=== PATIENT | male | born 1960 | race Caucasian/White ===

== ENCOUNTER 2022-07-15 10:19 | Emergency (ER) | payer MEDICARE, OTHER, SELFPAY ==
[2022-07-15 11:36] VITALS: BP 158/72; PULSE 72; RESP 12; TEMP 36.7; O2SAT 98; BMI 29.5
[2022-07-15 11:48] LABS: Appearance Urine Clear; Color Urine Yellow; Glucose Urine UA >=1000 mg/dL (Negative); Leukocyte Esterase Urine Small (1+) (Negative); Nitrite Urine Negative (Negative); UMIC TRIGGER UACC YES; Urine Blood Negative (Negative); Urine Ketones Negative (Negative); Urine Protein Negative (Neg-Trace)
[2022-07-15 12:00] LABS: Bacteria Urine None Seen (None Seen); Hyaline Casts Urine 0-2 /LPF (0-2); RBC Urine 0-2 /HPF (0-2); Squamous Epithelial Cell Urine 0-2 /HPF (0-2); UACC Culture Trigger YES; WBC Urine 0-5 /HPF (0-5)
== END 2022-07-15 16:00 | disposition left against medical advice (07) ==
PROVIDERS: Emergency Provider Emergency Medicine; PCP Internal Medicine
DX: R30.0 Dysuria (principal); E11.9 Type 2 diabetes mellitus without complications
CPT/HCPCS: 81001; 87086; 99282

== ENCOUNTER 2022-11-19 10:50 | Emergency (ER) | payer MEDICARE, MEDICAID, OTHER, SELFPAY ==
--- NOTE | 2022-11-19 11:00 | ED.EYEPROB ---
HPI - Eye Problem General Chief complaint: Eye Problems Stated complaint: eye issue Related Data Home Medications Medication Instructions Recorded Confirmed amlodipine 5 mg tablet 5 mg PO DAILY 11/12/20 blood sugar diagnostic #10 ea 11/12/20 lancets 28 gauge #100 ea 11/12/20 lisinopril 20 mg tablet 20 mg PO DAILY 11/12/20 metformin 1,000 mg tablet 1,000 mg PO 11/12/20 morphine 15 mg tablet,extended mg PO 11/12/20 release Previous Rx's Medication Instructions Recorded pentoxifylline 400 mg 400 mg PO BID 90 days #180 tabs 11/12/20 tablet,extended release vitamin E (dl, acetate) 450 mg 450 mg PO DAILY #90 caps 11/12/20 (1,000 unit) capsule Allergies Allergy/AdvReac Type Severity Reaction Status Date / Time No Known Allergies Allergy Unverified 07/11/20 16:22 [No Known Allergies*] [facility] Past Medical History Medical History (Updated 11/21/22 @ 08:06 by Liat Duke NP) Diabetes Social History Social History Advance Directives: No Advance Directives Information Provided: No Physical Exam Vital Signs: Vital Signs: Last Vital Signs Temp 98.4 F 11/19/22 11:01 Pulse 76 11/19/22 11:01 Resp 18 11/19/22 11:01 BP 147/90 H 11/19/22 11:01 Pulse Ox 97 11/19/22 11:01 O2 Del Method 11/19/22 11:01 BMI result Body Mass Index 30.4 Course Course Course Narrative: This is a rapid medical exam. Deferred additional HPI, ROS, PE to primary provider. 62 yo male with history of DM, HTN here with bilateral eye pain, itching, watering x 4 days. No visual complaints. Has not called eye doctor (sees Giovanni in [place]-had cataracts a few months ago). VSS Discharge Plan Discharge Clinical Impression: Acute eye pain Patient Disposition: Elopement Prescriptions: No Action morphine 15 mg tablet extended release PO amlodipine 5 mg tablet 5 mg PO DAILY (DME) FreeStyle Lite Strips Strip See Rx Instructions Not Applicable DAILY Qty: 10 Rx Instructions: As directed (DME) lancets 28 gauge misc See Rx Instructions topical DAILY Qty: 100 Rx Instructions: As directed lisinopril 20 mg tablet 20 mg PO DAILY metformin 1,000 mg tablet 1,000 mg PO pentoxifylline 400 mg tablet extended release 400 mg PO BID 90 Days Qty: 180 1RF Rx Instructions: administer with meals vitamin E (dl, acetate) 450 mg (1,000 unit) capsule 450 mg PO DAILY Qty: 90 1RF Interventions: ED Discharge Assessment Last Done: 11/19/22 12:39 Discharge Date/Time: 11/19/22 12:41
[2022-11-19 11:01] VITALS: BP 147/90; PULSE 76; RESP 18; TEMP 36.9; O2SAT 97; BMI 30.4
== END 2022-11-19 12:41 | disposition left against medical advice (07) ==
PROVIDERS: Emergency Provider Emergency Medicine; PCP Internal Medicine
DX: H57.13 Ocular pain, bilateral (principal)
CPT/HCPCS: 99282

== ENCOUNTER 2022-11-25 14:37 | Emergency (ER) | payer MEDICARE, MEDICAID, SELFPAY ==
--- NOTE | 2022-11-25 14:44 | ED.BACK ---
HPI - Back Pain/Injury General Chief Complaint: Back Pain/Injury <Liat Duke NP - Last Filed: 11/25/22 14:47> Stated Complaint: Lower back pain <Liat Duke NP - Last Filed: 11/25/22 14:47> Time Seen by Provider: 11/25/22 16:21 <Liat Duke NP - Last Filed: 11/25/22 14:47> Source: patient <ELSY Austin - Last Filed: 11/25/22 17:28> Mode of arrival: ambulatory <ELSY Austin Last Filed: 11/25/22 17:28> Limitations: language barrier (French-speaking) <ELSY Austin Last Filed: 11/25/22 17:28> History of Present Illness HPI Narrative: 62-year-old male with a past medical history of chronic back pain and BPH with urinary obstruction who is currently on morphine pain management due to his chronic back pain presenting to the ER with complaints of acute on chronic lower back pain since Wednesday after he was heavy lifting/moving things around. He reports he has been taking his prescribed morphine and no symptomatic relief. He reports he has came to emergency department in the past he believes [facility] and they gave him an injection which provided moderate symptomatic relief therefore he is requesting this injection. He reports this feels like his normal back pain. He denies any fevers, chest pain or shortness of breath, rashes, recent falls or trauma, abdominal pain, flank pain, dysuria, hematuria, abnormal penile discharge, black or bloody stools, diarrhea constipation, urinary bowel incontinence or retention, history of IV drug use, saddle anesthesias, lower extremity more calf tenderness or any other symptoms complaints or concerns at this time. <ELSY Austin - Last Filed: 11/25/22 17:28> MD elicited complaint: back pain <ELSY Austin - Last Filed: 11/25/22 17:28> Pertinent past history: prior back pain <ELSY Austin - Last Filed: 11/25/22 17:28> Onset (ago): day(s) (5) <ELSY Austin Last Filed: 11/25/22 17:28> Timing: constant and progressively worsening <ELSY Austin - Last Filed: 11/25/22 17:28> Severity: moderate <ELSY Austin - Last Filed: 11/25/22 17:28> Similar Symptoms Previously: Yes <ELSY Austin - Last Filed: 11/25/22 17:28> Quality: aching <ELSY Austin - Last Filed: 11/25/22 17:28> Location: lumbar spine and right lower back <ELSY Austin - Last Filed: 11/25/22 17:28> Radiation: none <ELSY Austin - Last Filed: 11/25/22 17:28> Exacerbating factors: movement, sitting upright, walking and lifting <ELSY Austin - Last Filed: 11/25/22 17:28> Relieving factors: none <ELSY Austin - Last Filed: 11/25/22 17:28> Context: while lifting, turning/twisting and bending <ELSY Austin - Last Filed: 11/25/22 17:28> Associated symptoms: denies other symptoms <ELSY Austin - Last Filed: 11/25/22 17:28> Treatments prior to arrival: other (See above) <ELSY Austin - Last Filed: 11/25/22 17:28> Work related injury: No <ELSY Austin - Last Filed: 11/25/22 17:28> Related Data Home Medications: Home Medications Medication Instructions Recorded Confirmed amlodipine 5 mg tablet 5 mg PO DAILY 11/12/20 blood sugar diagnostic #10 ea 11/12/20 lancets 28 gauge #100 ea 11/12/20 lisinopril 20 mg tablet 20 mg PO DAILY 11/12/20 metformin 1,000 mg tablet 1,000 mg PO 11/12/20 morphine 15 mg tablet,extended mg PO 11/12/20 release Previous Rx's Medication Instructions Recorded pentoxifylline 400 mg 400 mg PO BID 90 days #180 tabs 11/12/20 tablet,extended release vitamin E (dl, acetate) 450 mg 450 mg PO DAILY #90 caps 11/12/20 (1,000 unit) capsule cyclobenzaprine 10 mg tablet 10 mg PO Q8H #14 tabs 11/25/22 ketorolac 10 mg tablet 10 mg PO Q8H #14 tabs 11/25/22 <Liat Duke NP - Last Filed: 11/25/22 14:47> Allergies/Adverse Reactions: Allergies Allergy/AdvReac Type Severity Reaction Status Date / Time No Known Allergies Allergy Verified 11/25/22 16:48 [No Known Allergies*] <Liat Duke NP - Last Filed: 11/25/22 14:47> Review of Systems Review of Systems: Constitutional : No trauma, No Weight loss, No Fever, No Chills, ENT/Mouth : No Hearing loss, No Ear Pain, No Nasal Congestion, No Sinus Pain, No Hoarseness, No sore throat, No Rhinorrhea, No Swallowing Difficulty Cardiovascular : No Chest Pain, No SOB Respiratory : No Cough, No Dyspnea Gastrointestinal : No Nausea, No Vomiting, No Diarrhea, No abdominal Pain, No Hematochezia, No Melena Genitourinary : No Dysuria, No Urinary Frequency, No Hematuria, No Urinary or Bowel Incontinence/retention Musculoskeletal : + Back pain, No neck pain, No joint stiffness, No joint swelling Skin : No Skin Lesions, No rash or signs of infection Neuro : No Weakness, No radiation, No Numbness, No Paresthesias, No headache, no loss of bowel or bladder incontinence, no saddle anesthesia, Focal weakness, No radiation Denies history of IV drug usage. <ELSY Austin - Last Filed: 11/25/22 17:28> Yes all other systems are reviewed and are negative <ELSY Austin - Last Filed: 11/25/22 17:28> [facility] Past Medical History Attestation statement: The following information was validated with the patient. <ELSY Austin - Last Filed: 11/25/22 17:28> Medical History: Medical History Diabetes <Liat Duke NP - Last Filed: 11/25/22 14:47> Social History Social History: Social History Alcohol intake: current Alcohol intake frequency: a few times a week Smoked in Last 30 Days: No Use of substances other than those prescribed or required for medical reasons: No Advance Directives: No Advance Directives Information Provided: Yes <Liat Duke NP - Last Filed: 11/25/22 14:47> Physical Exam Vital Signs: Vital Signs: Last Vital Signs Temp 98.2 F 11/25/22 14:45 Pulse 69 11/25/22 14:45 Resp 18 11/25/22 14:45 BP 148/64 H 11/25/22 14:45 Pulse Ox 98 11/25/22 14:45 O2 Del Method 11/25/22 14:45 BMI result Body Mass Index 29.5 <Liat Duke NP - Last Filed: 11/25/22 14:47> Vital Signs: Last Vital Signs Temp 98.2 F 11/25/22 14:45 Pulse 69 11/25/22 14:45 Resp 18 11/25/22 14:45 BP 148/64 H 11/25/22 14:45 Pulse Ox 98 11/25/22 14:45 O2 Del Method 11/25/22 14:45 BMI result Body Mass Index 29.5 vital signs have been reviewed as normal and appeared to be correct. Blood pressure normal. Heart rate normal. Respiration rate normal. Temperature normal. Oxygen saturation normal. <ELSY Austin - Last Filed: 11/25/22 17:28> Appearance: Alert. Oriented X3. No acute distress. Head: Normal external exam. Normocephalic. Atraumatic. No Rodarte signs noted. No raccoon eyes noted Eyes: PERRLA. EOMI. Conjunctiva and sclera normal. Eyelids normal. ENT: EAC normal. TM's Normal. Pharynx normal. Uvula midline. Moist mucous membranes. No trismus noted. No drooling noted. No muffled voice noted. Neck: Normal inspection. Neck supple. FROM. No adenopathy. Thyroid Normal. No meningeal signs. No neck mass noted. CVS: Normal heart rate and rhythm. Heart sound normal. No murmurs noted. Pulses normal throughout. Respiratory: No respiratory distress. Painless inspiration. Breath sounds normal. No wheezes/rales/rhonchi noted. Chest nontender. No accessory muscle usage noted or decreased air movement noted. Abdomen: Soft and nontender. Bowel sounds normal in all 4 quadrants. No distention noted. No organomegaly noted. No visible injury noted. Back: No CVA tenderness. Full range of motion noted. No obvious deformities, or edema. Mild para-spinal muscular tenderness from lumbar region to coccyx. Full ROM in back and lower extremities. 5/5 strength hip extension/flexion, abduction, adduction. Mild Lumbar pain with hip flexion against resistance. Straight leg raise test negative on right; Straight leg raise test negative on left; Reflexes normal ankle and knee bilaterally; EHL motor strength normal bilaterally. No rashes/lesion/induration/fluctuance or signs infection noted. Skin: Skin warm and dry. Normal skin color. Normal skin turgor. No rashes/lesions/lacerations noted. Extremities: No lower extremity edema. Extremities exhibit normal range of motion. Extremities nontender. Neuro: Oriented X 3. No motor deficit. No sensory deficit. Reflexes normal. Patient has a normal steady gait. <ELSY Austin - Last Filed: 11/25/22 17:28> Course Course Course Narrative: This is rapid medical exam. Deferred additional HPI, ROS, PE to primary provider. 62 yo male with history of DM, HTN, chronic back pain with right sided back pain since Wednesday. NO injury or trauma. Took morphine this morning and still has pain. VSS. Will obtain labs, UA <Liat Duke NP - Last Filed: 11/25/22 14:47> This is rapid medical exam. Deferred additional HPI, ROS, PE to primary provider. 62 yo male with history of DM, HTN, chronic back pain with right sided back pain since Wednesday. NO injury or trauma. Took morphine this morning and still has pain. VSS. Will obtain labs, UA <ELSY Austin - Last Filed: 11/25/22 17:28> Reevaluation(s) Reevaluation #1: Pt c likely muscular pain, but could be herniated disc. Neuro exam shows no deficits. Not c/w AAA/epidural abscess/dissection.No high risk Hx (Incont, fever, immunosupp, recent surgery/LP, coag, signif trauma, wt loss, puls mass, hx/o Ca, TB, or IVDU) to warrant MRI/CT today. Not c/w Pyelo/UTI/kidney stone/spinal fx. Not cauda equina syndrome. Imaging not currently indicated. He did have labs taken while she was in the waiting room patient mild anemia with an H&H of 12.8/38.6. Anion gap 11. BUN 19. Magnesium 1.5. Otherwise all other labs are within normal limits. UA revealed a 1000 glucose otherwise no evidence of UTI. therefore pt given PO Magnesium at this time. Therefore will DC home with symptomatic treatment instructions return if any new or worsening symptoms to follow up with primary care provider. Patient understands agrees with this plan. <ELSY Austin - Last Filed: 11/25/22 17:28> Time: 16:56 <ELSY Austin - Last Filed: 11/25/22 17:28> Medications Administered Discontinued Medications Generic Name Dose Route Start Last Admin Trade Name Freq PRN Reason Stop Dose Admin Ketorolac Tromethamine 60 mg 11/25/22 16:38 11/25/22 16:45 Ketorolac Tromethamine 60 Mg/2 Ml Vial IM 11/25/22 16:39 60 mg ONCE ONE Administration <Liat Duke NP - Last Filed: 11/25/22 14:47> Medications Administered Discontinued Medications Generic Name Dose Route Start Last Admin Trade Name Freq PRN Reason Stop Dose Admin Ketorolac Tromethamine 60 mg 11/25/22 16:38 11/25/22 16:45 Ketorolac Tromethamine 60 Mg/2 Ml Vial IM 11/25/22 16:39 60 mg ONCE ONE Administration <ELSY Austin - Last Filed: 11/25/22 17:28> Medical Decision Making Lab Data MDM Lab Attestation statement: I reviewed the patient's lab results. <ELSY Austin - Last Filed: 11/25/22 17:28> Result Diagrams: 11/25/22 14:58 11/25/22 14:58 <Liat Duke NP - Last Filed: 11/25/22 14:47> Labs: Lab Results 11/25/22 11/25/22 11/25/22 Range/Units 14:58 14:58 16:29 WBC 5.6 (4.8-10.8) X10*3/uL RBC 4.75 (4.60-5.80) X10*6/uL Hgb 12.8 L (14.0-18.0) g/dl Hct 38.6 L (42.0-52.0) % MCV 81.3 (80.0-98.0) fL MCH 26.9 L (27.0-33.0) pg MCHC 33.2 (31.0-36.0) g/dl RDW 13.9 (11.0-16.0) % Plt Count 338 (160-400) X10*3/uL MPV 9.8 (9.4-12.4) fL Immature Gran % (Auto) 0.4 (0.0-0.4) % Neut % (Auto) 41.4 L (45-73) % Lymph % (Auto) 45.4 H (20-40) % Mcpherson % (Auto) 9.2 (2-11) % Eos % (Auto) 2.7 (0-4) % Baso % (Auto) 0.9 (0-2) % Lymph # (Auto) 2.5 (1.2-4.9) X10*3/uL Mcpherson # (Auto) 0.5 (0.1-1.2) X10*3/uL Eos # (Auto) 0.2 (0.0-0.4) X10*3/uL Baso # (Auto) 0.1 (0.0-0.2) X10*3/uL Abs Immat Gran (auto) 0.02 (0.00-0.03) X10*3/uL Absolute Neuts (auto) 2.3 (2.0-8.3) x10*3/uL Absolute Nucleated RBC 0.000 (0.0-0.012) X10*3/uL Nucleated RBC % (auto) 0.0 (0.0-0.2) /100WBC Sodium 136 (135-145) mmol/L Potassium 4.4 (3.3-5.1) mmol/L Chloride 101 (96-108) mmol/L Carbon Dioxide 28 (22-29) mmol/L Anion Gap 11 L (12-20) BUN 19 H (9-16) mg/dL Creatinine 1.19 (0.5-1.4) mg/dL Estim Creat Clear Calc 69.8 Estimated GFR > 60 Random Glucose 288 H (60-115) mg/dL Calcium 9.9 (8.4-10.2) mg/dL Magnesium 1.5 L (1.6-2.6) mg/dL Total Bilirubin 0.4 (0.0-1.0) mg/dL Direct Bilirubin < 0.2 (0.0-0.5) mg/dL AST 23 (5-37) U/L ALT 65 H (0-40) U/L Alkaline Phosphatase 56 (39-117) U/L Total Protein 7.2 (6.5-8.0) g/dL Albumin 4.6 (3.5-5.0) g/dL Lipase 40 (8-78) U/L Urine Color Yellow Urine Appearance Clear Urine pH 6.0 (5.0-9.0) Ur Specific [place] 1.020 (1.005-1.025) Urine Protein Negative (Neg-Trace) mg/dL Urine Glucose (UA) >=1000 H (Negative) mg/dL Urine Ketones Negative (Negative) mg/dL Urine Blood Negative (Negative) Urine Nitrite Negative (Negative) Ur Leukocyte Esterase Negative (Negative) Urine RBC 0-2 (0-2) /HPF Urine WBC 0-5 (0-5) /HPF Ur Squamous Epith Cells 0-2 (0-2) /HPF Urine Bacteria None Seen (None Seen) Hyaline Casts 0-2 (0-2) /LPF <Liat Duke, [employer] - Last Filed: 11/25/22 14:47> Lab Results 11/25/22 11/25/22 11/25/22 Range/Units 14:58 14:58 16:29 WBC 5.6 (4.8-10.8) X10*3/uL RBC 4.75 (4.60-5.80) X10*6/uL Hgb 12.8 L (14.0-18.0) g/dl Hct 38.6 L (42.0-52.0) % MCV 81.3 (80.0-98.0) fL MCH 26.9 L (27.0-33.0) pg MCHC 33.2 (31.0-36.0) g/dl RDW 13.9 (11.0-16.0) % Plt Count 338 (160-400) X10*3/uL MPV 9.8 (9.4-12.4) fL Immature Gran % (Auto) 0.4 (0.0-0.4) % Neut % (Auto) 41.4 L (45-73) % Lymph % (Auto) 45.4 H (20-40) % Mcpherson % (Auto) 9.2 (2-11) % Eos % (Auto) 2.7 (0-4) % Baso % (Auto) 0.9 (0-2) % Lymph # (Auto) 2.5 (1.2-4.9) X10*3/uL [place]pherson # (Auto) 0.5 (0.1-1.2) X10*3/uL Eos # (Auto) 0.2 (0.0-0.4) X10*3/uL Baso # (Auto) 0.1 (0.0-0.2) X10*3/uL Abs Immat Gran (auto) 0.02 (0.00-0.03) X10*3/uL Absolute Neuts (auto) 2.3 (2.0-8.3) x10*3/uL Absolute Nucleated RBC 0.000 (0.0-0.012) X10*3/uL Nucleated RBC % (auto) 0.0 (0.0-0.2) /100WBC Sodium 136 (135-145) mmol/L Potassium 4.4 (3.3-5.1) mmol/L Chloride 101 (96-108) mmol/L Carbon Dioxide 28 (22-29) mmol/L Anion Gap 11 L (12-20) BUN 19 H (9-16) mg/dL Creatinine 1.19 (0.5-1.4) mg/dL Estim Creat Clear Calc 69.8 Estimated GFR > 60 Random Glucose 288 H (60-115) mg/dL Calcium 9.9 (8.4-10.2) mg/dL Magnesium 1.5 L (1.6-2.6) mg/dL Total Bilirubin 0.4 (0.0-1.0) mg/dL Direct Bilirubin < 0.2 (0.0-0.5) mg/dL AST 23 (5-37) U/L ALT 65 H (0-40) U/L Alkaline Phosphatase 56 (39-117) U/L Total Protein 7.2 (6.5-8.0) g/dL Albumin 4.6 (3.5-5.0) g/dL Lipase 40 (8-78) U/L Urine Color Yellow Urine Appearance Clear Urine pH 6.0 (5.0-9.0) Ur Specific [place] 1.020 (1.005-1.025) Urine Protein Negative (Neg-Trace) mg/dL Urine Glucose (UA) >=1000 H (Negative) mg/dL Urine Ketones Negative (Negative) mg/dL Urine Blood Negative (Negative) Urine Nitrite Negative (Negative) Ur Leukocyte Esterase Negative (Negative) Urine RBC 0-2 (0-2) /HPF Urine WBC 0-5 (0-5) /HPF Ur Squamous Epith Cells 0-2 (0-2) /HPF Urine Bacteria None Seen (None Seen) Hyaline Casts 0-2 (0-2) /LPF <ELSY Austin - Last Filed: 11/25/22 17:28> Discharge Plan Discharge Clinical Impression: Strain of lumbar region, Low blood magnesium level <Liat Duke NP - Last Filed: 11/25/22 14:47> Patient Disposition: Home, Self-Care <Liat Duke NP - Last Filed: 11/25/22 14:47> Instructions: Low Back Strain (ED), Lower Back Exercises (ED) <Liat Duke NP - Last Filed: 11/25/22 14:47> Prescriptions: New cyclobenzaprine 10 mg tablet 10 mg PO Q8H Qty: 14 0RF ketorolac 10 mg tablet 10 mg PO Q8H Qty: 14 0RF Rx Instructions: first dose given in the ED by IM and patient tolerated well No Action morphine 15 mg tablet extended release PO amlodipine 5 mg tablet 5 mg PO DAILY (DME) FreeStyle Lite Strips Strip See Rx Instructions Not Applicable DAILY Qty: 10 Rx Instructions: As directed (DME) lancets 28 gauge misc See Rx Instructions topical DAILY Qty: 100 Rx Instructions: As directed lisinopril 20 mg tablet 20 mg PO DAILY metformin 1,000 mg tablet 1,000 mg PO pentoxifylline 400 mg tablet extended release 400 mg PO BID 90 Days Qty: 180 1RF Rx Instructions: administer with meals vitamin E (dl, acetate) 450 mg (1,000 unit) capsule 450 mg PO DAILY Qty: 90 1RF <Liat Duke NP - Last Filed: 11/25/22 14:47> Referrals: Bobby Amador MD [Primary Care Provider] - 2 days <Liat Duke NP - Last Filed: 11/25/22 14:47> Print Language: French <Liat Duke NP - Last Filed: 11/25/22 14:47>
[2022-11-25 14:45] VITALS: BP 148/64; PULSE 69; RESP 18; TEMP 36.8; O2SAT 98; BMI 29.5
[2022-11-25 15:04] LABS: MANUAL DIFF FLAG NO
[2022-11-25 15:06] LABS: Basophils Absolute Auto 0.1 X10*3/uL (0.0-0.2); Basophils Percent Auto 0.9 % (0-2); Eosinophils Absolute Auto 0.2 X10*3/uL (0.0-0.4); Eosinophils Percent Auto 2.7 % (0-4); Hematocrit 38.6 % (42.0-52.0); Hemoglobin 12.8 g/dl (14.0-18.0); Imm Gran Abs Auto 0.02 X10*3/uL (0.00-0.03); Imm Gran Pct Auto 0.4 % (0.0-0.4); Lymphocytes Absolute Auto 2.5 X10*3/uL (1.2-4.9); Lymphocytes Percent Auto 45.4 % (20-40); Mean Corpuscular HGB Conc 33.2 g/dl (31.0-36.0); Mean Corpuscular Hemoglobin 26.9 pg (27.0-33.0); Mean Corpuscular Volume 81.3 fL (80.0-98.0); Mean Platelet Volume 9.8 fL (9.4-12.4); Monocytes Absolute Auto 0.5 X10*3/uL (0.1-1.2); Monocytes Percent Auto 9.2 % (2-11); Neutrophils Absolute Auto 2.3 x10*3/uL (2.0-8.3); Neutrophils Percent Auto 41.4 % (45-73); Platelet Count 338 X10*3/uL (160-400); Red Blood Count 4.75 X10*6/uL (4.60-5.80); Red Cell Distribution Width 13.9 % (11.0-16.0); White Blood Count 5.6 X10*3/uL (4.8-10.8)
[2022-11-25 15:23] LABS: Anion Gap 11 (12-20); Blood Urea Nitrogen 19 mg/dL (9-16); Calcium 9.9 mg/dL (8.4-10.2); Carbon Dioxide 28 mmol/L (22-29); Chloride 101 mmol/L (96-108); Creatinine Clr Calc Pharmacy 69.8; Estimated Glomerular Filt Rate > 60; Glucose Random 288 mg/dL (60-115); Potassium 4.4 mmol/L (3.3-5.1); Sodium 136 mmol/L (135-145)
[2022-11-25 16:43] LABS: Appearance Urine Clear; Color Urine Yellow; Glucose Urine UA >=1000 mg/dL (Negative); Leukocyte Esterase Urine Negative (Negative); Nitrite Urine Negative (Negative); UMIC TRIGGER UACC YES; Urine Blood Negative (Negative); Urine Ketones Negative (Negative); Urine Protein Negative (Neg-Trace)
[2022-11-25] MEDS: Ketorolac Tromethamine 60 MG/2 ML VIAL IM (16:45)
[2022-11-25 16:48] LABS: Bacteria Urine None Seen (None Seen); Hyaline Casts Urine 0-2 /LPF (0-2); RBC Urine 0-2 /HPF (0-2); Squamous Epithelial Cell Urine 0-2 /HPF (0-2); WBC Urine 0-5 /HPF (0-5)
--- NOTE | 2022-11-25 16:48 | PC.NURSE ---
pt reports pain in back, medicated for pain per order
[2022-11-25 16:58] LABS: Alanine Aminotransferase 65 U/L (0-40); Albumin Level 4.6 g/dL (3.5-5.0); Alkaline Phosphatase 56 U/L (39-117); Aspartate Amino Transferase 23 U/L (5-37); Bilirubin Direct < 0.2 mg/dL (0.0-0.5); Bilirubin Total 0.4 mg/dL (0.0-1.0); Lipase 40 U/L (8-78); Magnesium 1.5 mg/dL (1.6-2.6); Total Protein 7.2 g/dL (6.5-8.0)
[2022-11-25] MEDS: Magnesium Oxide 400 MG TABLET 800 MG PO (17:33)
== END 2022-11-25 17:36 | disposition home or self-care (01) ==
PROVIDERS: Nurse Practitioner Family; Physician Assistant Medical; Emergency Provider Emergency Medicine; PCP Internal Medicine
DX: M54.50 Low back pain, unspecified (principal); E83.42 Hypomagnesemia; E11.9 Type 2 diabetes mellitus without complications; I10 Essential (primary) hypertension; Z79.899 Other long term (current) drug therapy; Z79.84 Long term (current) use of oral hypoglycemic drugs
CPT/HCPCS: 36415; 80048; 80076; 81001; 83690; 83735; 85025; 96372; 99284; J1885

== ENCOUNTER 2022-12-03 10:56 | Emergency (ER) | payer MEDICARE, MEDICAID, SELFPAY ==
--- NOTE | ~2022-12-03 | XR_ITS ---
EXAMINATION: XR LUMBOSACRAL SPINE CLINICAL INFORMATION: Lower back pain COMPARISON: None TECHNIQUE: Three views of the lumbosacral spine. FINDINGS: Normal alignment. No fracture. Mild to moderate multilevel degenerative disc disease with prominent endplate osteophytes, particularly laterally on the right. Moderate to severe osteoarthritis of the left hip joint and mild to moderate osteoarthritis of the right hip joint. XR/XR lumbar spine 2-3V IMPRESSION: Mild to moderate multilevel degenerative disc disease. Moderate to severe left hip osteoarthritis. No acute osseous abnormality.
[2022-12-03 11:18] VITALS: BP 145/79; PULSE 78; RESP 16; TEMP 36.1; O2SAT 96; BMI 30.7
--- NOTE | 2022-12-03 11:19 | ED_ITS ---
HPI - Back Pain/Injury General Chief Complaint: Back Pain/Injury <ELSY Urena - Last Filed: 12/03/22 11:48> Stated Complaint: back pain <ELSY Urena Last Filed: 12/03/22 11:48> Time Seen by Provider: 12/03/22 13:08 <ELSY Urena - Last Filed: 12/03/22 11:48> Source: patient <ELSY Mcneil - Last Filed: 12/03/22 19:10> Mode of arrival: ambulatory <ELSY Mcneil Last Filed: 12/03/22 19:10> History of Present Illness HPI Narrative: 62-year-old male with a past medical history of chronic back pain, BPH with urinary obstruction, presenting to the ED complaining of acute on chronic low back pain x 1 week. Patient admits he was seen and treated in our ED on 11/25/2022 for similar symptoms, reports symptoms are persistent, unchanged, denies known injury, trauma, fall. Reports previous injection helped with pain relief. Denies numbness, tingling, weakness, urinary incontinence/ retention, fever, hematuria/dysuria <ELSY Mcneil - Last Filed: 12/03/22 19:10> MD elicited complaint: back pain <ELSY Mcneil - Last Filed: 12/03/22 19:10> Pertinent past history: prior back pain <ELSY Mcneil - Last Filed: 12/03/22 19:10> Onset (ago): week(s) <ELSY Mcneil Last Filed: 12/03/22 19:10> Related Data Home Medications: Home Medications Medication Instructions Recorded Confirmed amlodipine 5 mg tablet 5 mg PO DAILY 11/12/20 blood sugar diagnostic #10 ea 11/12/20 lancets 28 gauge #100 ea 11/12/20 lisinopril 20 mg tablet 20 mg PO DAILY 11/12/20 metformin 1,000 mg tablet 1,000 mg PO 11/12/20 morphine 15 mg tablet,extended mg PO 11/12/20 release Previous Rx's Medication Instructions Recorded pentoxifylline 400 mg 400 mg PO BID 90 days #180 tabs 01/19/21 tablet,extended release vitamin E (dl, acetate) 450 mg 450 mg PO DAILY #90 caps 11/12/20 (1,000 unit) capsule cyclobenzaprine 10 mg tablet 10 mg PO Q8H #14 tabs 11/25/22 ketorolac 10 mg tablet 10 mg PO Q8H #14 tabs 11/25/22 acetaminophen 500 mg tablet 500 mg PO Q6H PRN fever or pain 12/03/22 (Tylenol Extra Strength) #14 tabs cyclobenzaprine 5 mg tablet 5 mg PO Q8H PRN pain (scale score 12/03/22 7-10) 5 days #14 tabs lidocaine 5 % topical patch 1 patch topical DAILY PRN pain #30 12/03/22 (Lidoderm) ea <ELSY Urena Last Filed: 12/03/22 11:48> Allergies/Adverse Reactions: Allergies Allergy/AdvReac Type Severity Reaction Status Date / Time No Known Allergies Allergy Verified 11/25/22 16:48 [No Known Allergies*] <ELSY Urena Last Filed: 12/03/22 11:48> Review of Systems Review of Systems: Constitutional: No Fever, No Chills ENT/Mouth: No Ear Pain, No Nasal Congestion, No sore throat, No Rhinorrhea, No Swallowing Difficulty Cardiovascular: No Chest Pain, No SOB Respiratory: No Cough, No Sputum, No Wheezing Gastrointestinal: No Nausea, No Vomiting, No Diarrhea, No Constipation, No Abdominal pain Genitourinary: No Dysuria, No Urinary Frequency, No Hematuria, No Urinary Incontinence/retention, No Flank Pain Musculoskeletal: +joint pain, No Myalgias, No Joint Swelling Skin: No Skin Lesions, No rash Neuro: No Weakness, No Numbness, No Paresthesias <ELSY Mcneil Last Filed: 12/03/22 19:10> Yes all other systems are reviewed and are negative <ELSY Mcneil Last Filed: 12/03/22 19:10> Constitutional: Constitutional: Reports as per HPI <ELSY Mcneil Last Filed: 12/03/22 19:10> [facility] Past Medical History Attestation statement: The following information was validated with the patient. <ELSY Mcneil Last Filed: 12/03/22 19:10> Medical History: Medical History Diabetes <ELSY Urena - Last Filed: 12/03/22 11:48> Social History Social History: Social History Alcohol intake: current Alcohol intake frequency: a few times a week Advance Directives: No <ELSY Urena - Last Filed: 12/03/22 11:48> Physical Exam Vital Signs: Vital Signs: Last Vital Signs Temp 96.9 F 12/03/22 11:18 Pulse 78 12/03/22 11:18 Resp 16 12/03/22 11:18 BP 145/79 H 12/03/22 11:18 Pulse Ox 96 12/03/22 11:18 O2 Del Method 12/03/22 11:18 BMI result Body Mass Index 30.7 <ELSY Urena - Last Filed: 12/03/22 11:48> Vital Signs: Last Vital Signs Temp 96.9 F 12/03/22 11:18 Pulse 78 12/03/22 11:18 Resp 16 12/03/22 11:18 BP 145/79 H 12/03/22 11:18 Pulse Ox 96 12/03/22 11:18 O2 Del Method 12/03/22 11:18 BMI result Body Mass Index 30.7 <ELYS Mcneil - Last Filed: 12/03/22 19:10> Vital Signs: Last Vital Signs Temp 96.9 F 12/03/22 11:18 Pulse 78 12/03/22 11:18 Resp 16 12/03/22 11:18 BP 145/79 H 12/03/22 11:18 Pulse Ox 96 12/03/22 11:18 O2 Del Method 12/03/22 11:18 BMI result Body Mass Index 30.7 <Aki Rdz MD - Last Filed: 12/05/22 01:21> Const: General: cooperative, healthy appearing and no acute distress <ELSY Mcneil - Last Filed: 12/03/22 19:10> Orientation/consciousness: patient oriented x3 <ELSY Mcneil - Last Filed: 12/03/22 19:10> Limitations: no limitations <Chetna Hubermarcus HI - Last Filed: 12/03/22 19:10> HEENT: Head: Yes normal to inspection and Yes atraumatic <Chetna Hubermarcus HI - Last Filed: 12/03/22 19:10> Ears: hearing grossly normal bilaterally <Chetna Hubermarcus [facility] Last Filed: 12/03/22 19:10> General nose exam: Normal external nose present <Chetna Hubermarcus [facility] Last Filed: 12/03/22 19:10> Face and sinus: Yes normal facial exam <Chetna Hubermarcus [facility] Last Filed: 12/03/22 19:10> Eyes: General: appearance normal, both eyes and all related structures <Chetna Hubermarcus HI - Last Filed: 12/03/22 19:10> EOM: EOMs intact bilaterally <Chetna Hubermarcus [facility] Last Filed: 12/03/22 19:10> Neck: Neck: Yes normal visual inspection and Yes no meningeal signs <Chetna Hubermarcus HI - Last Filed: 12/03/22 19:10> Resp: Effort & Inspection: normal respiratory effort and no respiratory distress <Chetna Modi [place] - Last Filed: 12/03/22 19:10> Cardio: Rate: regular rate <Chetna Hubermarcus [facility] Last Filed: 12/03/22 19:10> Heart sounds: S1 normal heart sound present and S2 normal heart sound present <Chetna Modi [facility] Last Filed: 12/03/22 19:10> GI: Inspection: Yes normal to inspection <Chetna Hubermarcus [facility] Last Filed: 12/03/22 19:10> Palpation (GI): Soft to palpation, nontender, no guarding and not rigid <Chetna Modi [place] - Last Filed: 12/03/22 19:10> : General: Yes no CVA tenderness <Chetna Modi [place] - Last Filed: 12/03/22 19:10> Back/Spine/Pelvis: Other: No midline thoracic/lumbar spinous tenderness/step-off or deformity. mild bilateral lower lumbar MSK/paraspinal tenderness to palpation <ELSY Mcneil - Last Filed: 12/03/22 19:10> Back: no CVA tenderness <ELSY Mcneil - Last Filed: 12/03/22 19:10> Skin: Rashes: no rashes <ELSY Mcneil - Last Filed: 12/03/22 19:10> Wounds: no wounds <ELSY Mcneil - Last Filed: 12/03/22 19:10> Neuro: Other: Strength intact throughout. No saddle anesthesia. Sensation intact to light touch. Neurovascular intact distally <ELSY Mcneil - Last Filed: 12/03/22 19:10> General: patient oriented x3, gait normal, tone normal, moves all extremities, no meningeal signs and no focal motor deficits <ELSY Mcneil - Last Filed: 12/03/22 19:10> Gait exam (Neuro): Normal gait present <ELSY Mcneil - Last Filed: 12/03/22 19:10> Motor exam (neuro): 5/5 motor strength present throughout <ELSY Mcneil - Last Filed: 12/03/22 19:10> Extrem: Other: hips nontender <LESY Mcneil - Last Filed: 12/03/22 19:10> General: Yes normal to inspection <ELSY Mcneil - Last Filed: 12/03/22 19:10> Course Course Course Narrative: This is an RME: Additional HPI, ROS, PE not included below will be deferred to primary provider. 62 year old male presents w/ LL back pain X 8 days. Tells me he was seen here for this pain on 11/25 here at the hospital he got a shot and it felt better but now pain is back. Reprots hasnt seen a specialist or PCP. Denies red flag sx denies numbness, tingling, fever, chills, saddle paresthesias <Chuy Rojas PA - Last Filed: 12/03/22 11:48> This is an RME: Additional HPI, ROS, PE not included below will be deferred to primary provider. 62 year old male presents w/ LL back pain X 8 days. Tells me he was seen here for this pain on 11/25 here at the hospital he got a shot and it felt better but now pain is back. Reprots hasnt seen a specialist or PCP. Denies red flag sx denies numbness, tingling, fever, chills, saddle paresthesias XR lumbar spine 2-3V IMPRESSION: Mild to moderate multilevel degenerative disc disease. Moderate to severe left hip osteoarthritis. No acute osseous abnormality. >Results discussed with patient including worrisome signs and symptoms and strict return precautions, and when to return to the emergency department. They verbalized understanding and feel safe for discharge at this time. <ELSY Mcneil - Last Filed: 12/03/22 19:10> Medications Administered Discontinued Medications Generic Name Dose Route Start Last Admin Trade Name Freq PRN Reason Stop Dose Admin Ketorolac Tromethamine 30 mg 12/03/22 13:25 12/03/22 14:05 Ketorolac Tromethamine 30 Mg/Ml Vial IM 12/03/22 13:26 30 mg ONCE ONE Administration Lidocaine 1 patch 12/03/22 13:25 12/03/22 14:04 Lidocaine 4 % Patch Adh..Patch TRANSDERMA 12/03/22 13:26 1 patch ONCE ONE Administration Protocol <ELSY Urena - Last Filed: 12/03/22 11:48> Medications Administered Discontinued Medications Generic Name Dose Route Start Last Admin Trade Name Freq PRN Reason Stop Dose Admin Ketorolac Tromethamine 30 mg 12/03/22 13:25 12/03/22 14:05 Ketorolac Tromethamine 30 Mg/Ml Vial IM 12/03/22 13:26 30 mg ONCE ONE Administration Lidocaine 1 patch 12/03/22 13:25 12/03/22 14:04 Lidocaine 4 % Patch Adh..Patch TRANSDERMA 12/03/22 13:26 1 patch ONCE ONE Administration Protocol <ELSY Mcneil - Last Filed: 12/03/22 19:10> Medications Administered Discontinued Medications Generic Name Dose Route Start Last Admin Trade Name Freq PRN Reason Stop Dose Admin Ketorolac Tromethamine 30 mg 12/03/22 13:25 12/03/22 14:05 Ketorolac Tromethamine 30 Mg/Ml Vial IM 12/03/22 13:26 30 mg ONCE ONE Administration Lidocaine 1 patch 12/03/22 13:25 12/03/22 14:04 Lidocaine 4 % Patch Adh..Patch TRANSDERMA 12/03/22 13:26 1 patch ONCE ONE Administration Protocol <Aki Rdz MD - Last Filed: 12/05/22 01:21> Medical Decision Making Medical Decision Making MDM Narrative: 62-year-old male with a past medical history of chronic back pain, BPH with urinary obstruction, presenting to the ED complaining of acute on chronic low back pain x 1 week. on exam vital signs stable, NAD, nontoxic-appearing, physical exam as above, no midline spinous tenderness through or red flag symptoms. Reproducible MSK pain. No evidence of trauma. Concern for MSK pain/strain/ osteoarthritis. Lower suspicion for cauda equina, cord compression, epidural abscess, renal stone/ pyelo or UTI Plan: X-rays ordered in triage, pain control Please refer to course for remaining clinical decision making, interpretation of labs/imaging results, and discussions with consultants and/or family members. <ELSY Mcneil - Last Filed: 12/03/22 19:10> Differential Diagnosis Differential Diagnoses: The differential diagnosis associated with the presentation includes <ELSY Mcneil - Last Filed: 12/03/22 19:10> as above <ELSY Mcneil - Last Filed: 12/03/22 19:10> Radiology Impression Discussion of test interpretation with radiology: I have reviewed the radiologist's reading. <ELSY Mcneil - Last Filed: 12/03/22 19:10> External Record Review External record reviewed: Office record <ELSY Mcneil - Last Filed: 12/03/22 19:10> prior ED record <ELSY Mcneil - Last Filed: 12/03/22 19:10> Prescription Management I considered prescription management with: Pain Medication <ELSY Mcneil - Last Filed: 12/03/22 19:10> Attestation Attending Attestation: I reviewed [employer]/PA/Resident note, assessment and plan. I agree with the documentation, assessment and plan unless otherwise stated. <Aki Rdz MD - Last Filed: 12/05/22 01:21> Discharge Plan Discharge Clinical Impression: Osteoarthritis, Acute exacerbation of chronic low back pain <ELSY Urena - Last Filed: 02/09/23 11:48> Patient Disposition: Home, Self-Care <ELSY Urena Last Filed: 12/03/22 11:48> Instructions: Osteoarthritis (ED), Chronic Pain (ED) <ELSY Urena - Last Filed: 12/03/22 11:48> Additional Instructions: please follow-up with your doctor. your x-ray shows osteoarthritis. No fractures. Your pain is likely musculoskeletal Flexeril is a muscle relaxer, take at night as it makes you drowsy, do not drive, drink alcohol, or operate machinery while taking it Lidoderm patches are numbing patches, apply to painful area In addition take Tylenol at home If symptoms persist or worsen, pain becomes unbearable, you developed urinary re tention or incontinence, or weakness return to the ED <ELSY Urena Last Filed: 12/03/22 11:48> Prescriptions: New cyclobenzaprine 5 mg tablet 5 mg PO Q8H PRN (Reason: pain (scale score 7-10)) 5 Days Qty: 14 0RF acetaminophen [Tylenol Extra Strength] 500 mg tablet 500 mg PO Q6H PRN (Reason: fever or pain) Qty: 14 0RF lidocaine [Lidoderm] 5 % adhesive patch,medicated 1 patch topical DAILY MDD remove after 12 hours PRN (Reason: pain) Qty: 30 0RF Rx Instructions: leave on most painful area for up to 12 hrs No Action cyclobenzaprine 10 mg tablet 10 mg PO Q8H Qty: 14 0RF ketorolac 10 mg tablet 10 mg PO Q8H Qty: 14 0RF Rx Instructions: first dose given in the ED by IM and patient tolerated well morphine 15 mg tablet extended release PO amlodipine 5 mg tablet 5 mg PO DAILY (DME) FreeStyle Lite Strips Strip See Rx Instructions Not Applicable DAILY Qty: 10 Rx Instructions: As directed (DME) lancets 28 gauge misc See Rx Instructions topical DAILY Qty: 100 Rx Instructions: As directed lisinopril 20 mg tablet 20 mg PO DAILY metformin 1,000 mg tablet 1,000 mg PO pentoxifylline 400 mg tablet extended release 400 mg PO BID 90 Days Qty: 180 1RF Rx Instructions: administer with meals vitamin E (dl, acetate) 450 mg (1,000 unit) capsule 450 mg PO DAILY Qty: 90 1RF <ELSY Urena - Last Filed: 12/03/22 11:48> Referrals: [facility] [place] [facility] [Provider Group] - 1 week Bobby Amador MD [Primary Care Provider] - <ELSY Urena - Last Filed: 12/03/22 11:48> Interventions: ED Discharge Assessment Last Done: 12/03/22 14:18 <ELSY Urena - Last Filed: 12/03/22 11:48> Discharge Date/Time: 12/03/22 14:19 <ELSY Urena - Last Filed: 12/03/22 11:48>
[2022-12-03] MEDS: Lidocaine 4 % Patch ADH..PATCH 1 PATCH TRANSDERMA (14:04)
[2022-12-03] MEDS: Ketorolac Tromethamine 30 MG/ML VIAL IM (14:05)
== END 2022-12-03 14:19 | disposition home or self-care (01) ==
PROVIDERS: Emergency Provider Emergency Medicine; PCP Internal Medicine
DX: M16.12 Unilateral primary osteoarthritis, left hip (principal); G89.29 Other chronic pain; M54.50 Low back pain, unspecified; E11.9 Type 2 diabetes mellitus without complications; Z79.899 Other long term (current) drug therapy; Z79.84 Long term (current) use of oral hypoglycemic drugs
CPT/HCPCS: 72100; 96372; 99283; 99284; J1885

== ENCOUNTER 2023-08-12 02:12 | Emergency (ER) | payer MEDICARE, SELFPAY ==
[2023-08-12 02:26] VITALS: BP 162/100; PULSE 68; RESP 18; TEMP 36.7; O2SAT 98; BMI 29.2
--- NOTE | 2023-08-12 03:36 | PC.NURSE ---
Pt ca&ox4, no signs of acute distress. Pt reports 10/10 pain to left eyebrow area with onset of 2 days ago. Pts eye/brow with erythema and swelling, area hot and tender to palpation. Pt denies n/v/d and visual loss/changes to eye. Pt reports a mild headache and states Karin had this before but, never this bad it usually goes away after 2 days. Plan of care ongoing.
--- NOTE | 2023-08-12 04:40 | ED_ITS ---
HPI - Eye Problem General Chief complaint: Eye Problems Stated complaint: eye inj Time Seen by Provider: 08/12/23 04:40 Source: patient Mode of arrival: ambulatory Limitations: no limitations History of Present Illness HPI Narrative: Patient is small pimple around left eyebrow 2 days ago which he scratched now comes here with swelling of the left eyelid no pain in the eye wall no vision loss had a mild headache no diplopia Related Data Home Medications Medication Instructions Recorded Confirmed amlodipine 5 mg tablet 5 mg PO DAILY 11/12/20 blood sugar diagnostic #10 ea 11/12/20 lancets 28 gauge #100 ea 11/12/20 lisinopril 20 mg tablet 20 mg PO DAILY 11/12/20 metformin 1,000 mg tablet 1,000 mg PO 11/12/20 morphine 15 mg tablet,extended mg PO 11/12/20 release Previous Rx's Medication Instructions Recorded pentoxifylline 400 mg 400 mg PO BID 90 days #180 tabs 11/12/20 tablet,extended release vitamin E (dl, acetate) 450 mg 450 mg PO DAILY #90 caps 11/12/20 (1,000 unit) capsule cyclobenzaprine 10 mg tablet 10 mg PO Q8H #14 tabs 11/25/22 ketorolac 10 mg tablet 10 mg PO Q8H #14 tabs 11/25/22 acetaminophen 500 mg tablet 500 mg PO Q6H PRN fever or pain 12/03/22 (Tylenol Extra Strength) #14 tabs cyclobenzaprine 5 mg tablet 5 mg PO Q8H PRN pain (scale score 12/03/22 7-10) 5 days #14 tabs lidocaine 5 % topical patch 1 patch topical DAILY PRN pain #30 12/03/22 (Lidoderm) ea cephalexin 500 mg capsule 500 mg PO QID 10 days #40 caps 08/12/23 doxycycline hyclate 100 mg tablet 100 mg PO BID #20 tabs 08/12/23 Allergies Allergy/AdvReac Type Severity Reaction Status Date / Time No Known Allergies Allergy Verified 08/12/23 02:29 [No Known Allergies*] Review of Systems Review of Systems: Yes all other systems are reviewed and are negative PMFSH Past Medical History Medical History Diabetes Social History Social History Alcohol intake: current Alcohol intake frequency: a few times a week Advance Directives: No Advance Directives Information Provided: Yes Physical Exam Vital Signs: Vital Signs: Last Vital Signs Temp 98.1 F 08/12/23 02:26 Pulse 68 08/12/23 02:26 Resp 18 08/12/23 02:26 BP 162/100 H 08/12/23 02:26 Pulse Ox 98 08/12/23 02:26 O2 Del Method Room Air 08/12/23 02:26 BMI result Body Mass Index 29.2 Appearance: Alert. Oriented X3. No acute distress. Eyes: Swollen left eyelid EOMI painless ENT: Pharynx normal. Oral Mucosa moist Neck: Normal inspection. Neck supple. CVS: Normal heart rate and rhythm. Pulses normal. Respiratory: No respiratory distress. Equal air entry bilateral, Neuro: Oriented X 3. Medications Administered Discontinued Medications Generic Name Dose Route Start Last Admin Trade Name Freq PRN Reason Stop Dose Admin Cephalexin HCl 500 mg 08/12/23 05:04 08/12/23 05:26 Cephalexin 500 Mg Capsule PO 08/12/23 05:05 500 mg ONCE ONE Administration Doxycycline Monohydrate 100 mg 08/12/23 05:04 08/12/23 05:26 Doxycycline Monohydrate 100 Mg Capsule PO 08/12/23 05:05 100 mg ONCE ONE Administration Medical Decision Making Medical Decision Making [facility] Narrative: Patient with left periorbital cellulitis discharge patient home on doxycycline Keflex Differential Diagnosis Differential Diagnoses: The differential diagnosis associated with the presenta tion includes Cellulitis/paraseptal cellulitis/orbital cellulitis Discharge Plan Discharge Clinical Impression: Periorbital cellulitis of left eye Patient Disposition: Home, Self-Care Instructions: Periorbital Cellulitis in Adults (ED) Additional Instructions: Take antibiotic as prescribed Report to the ER if worsening of the swelling or pain in the eye Prescriptions: New cephalexin 500 mg capsule 500 mg PO QID 10 Days Qty: 40 0RF doxycycline hyclate 100 mg tablet 100 mg PO BID Qty: 20 0RF No Action cyclobenzaprine 5 mg tablet 5 mg PO Q8H PRN (Reason: pain (scale score 7-10)) 5 Days Qty: 14 0RF acetaminophen [Tylenol Extra Strength] 500 mg tablet 500 mg PO Q6H PRN (Reason: fever or pain) Qty: 14 0RF lidocaine [Lidoderm] 5 % adhesive patch,medicated 1 patch topical DAILY MDD remove after 12 hours PRN (Reason: pain) Qty: 30 0RF Rx Instructions: leave on most painful area for up to 12 hrs cyclobenzaprine 10 mg tablet 10 mg PO Q8H Qty: 14 0RF ketorolac 10 mg tablet 10 mg PO Q8H Qty: 14 0RF Rx Instructions: first dose given in the ED by IM and patient tolerated well morphine 15 mg tablet extended release PO amlodipine 5 mg tablet 5 mg PO DAILY (DME) FreeStyle Lite Strips Strip See Rx Instructions Not Applicable DAILY Qty: 10 Rx Instructions: As directed (DME) lancets 28 gauge misc See Rx Instructions topical DAILY Qty: 100 Rx Instructions: As directed lisinopril 20 mg tablet 20 mg PO DAILY metformin 1,000 mg tablet 1,000 mg PO pentoxifylline 400 mg tablet extended release 400 mg PO BID 90 Days Qty: 180 1RF Rx Instructions: administer with meals vitamin E (dl, acetate) 450 mg (1,000 unit) capsule 450 mg PO DAILY Qty: 90 1RF Interventions: ED Discharge Assessment Last Done: 08/12/23 05:30 Discharge Date/Time: 08/12/23 05:31
[2023-08-12] MEDS: cephALEXin 500 MG CAPSULE PO (05:26)
[2023-08-12] MEDS: Doxycycline Monohydrate 100 MG CAPSULE PO (05:26)
--- NOTE | 2023-08-12 05:29 | PC.NURSE ---
Pt ca&ox4, no signs of acute distress. Pt medicated per mar.
== END 2023-08-12 05:31 | disposition home or self-care (01) ==
PROVIDERS: Emergency Provider Internal Medicine; PCP Internal Medicine
DX: L03.213 Periorbital cellulitis (principal); R51.9 Headache, unspecified; E11.9 Type 2 diabetes mellitus without complications; Z79.84 Long term (current) use of oral hypoglycemic drugs; Z79.899 Other long term (current) drug therapy
CPT/HCPCS: 99283

== ENCOUNTER 2023-12-16 08:17 | Outpatient (REF) | payer MEDICARE, MEDICAID, SELFPAY ==
[2023-12-16 11:52] LABS: Alanine Aminotransferase 28 U/L (0-40); Albumin Level 4.7 g/dL (3.5-5.0); Alkaline Phosphatase 61 U/L (39-117); Anion Gap 15 (12-20); Aspartate Amino Transferase 20 U/L (5-37); Bilirubin Direct 0.2 mg/dL (0.0-0.5); Bilirubin Total 0.5 mg/dL (0.0-1.0); Blood Urea Nitrogen 16 mg/dL (9-16); Calcium 10.4 mg/dL (8.4-10.2); Carbon Dioxide 30 mmol/L (22-29); Chloride 100 mmol/L (96-108); Cholesterol 222 mg/dL (<200); Estimated Glomerular Filt Rate > 60; Glucose Random 158 mg/dL (60-115); HDL Cholesterol 41 mg/dL (>40); LDL Cholesterol Calculated 124 mg/dL (<100); Potassium 4.5 mmol/L (3.3-5.1); Sodium 140 mmol/L (135-145); Total Protein 7.8 g/dL (6.5-8.0); Triglycerides 286 mg/dL (<150)
[2023-12-16 12:02] LABS: Prostate Specific Antigen 1.63 ng/mL (<0.05-4.0)
[2023-12-16 12:35] LABS: Reflex LDLD? No
== END 2023-12-16 08:18 | disposition home or self-care (01) ==
LOC: HO.HHCL 08:17
PROVIDERS: Visit Provider Internal Medicine
DX: Z00.00 Encounter for general adult medical examination without abnormal findings (principal); E78.2 Mixed hyperlipidemia; I10 Essential (primary) hypertension; Z12.5 Encounter for screening for malignant neoplasm of prostate
CPT/HCPCS: 36415; 80048; 80061; 80076; 84153

== ENCOUNTER 2024-02-25 18:32 | Emergency (ER) | payer MEDICARE, MEDICAID, SELFPAY ==
--- NOTE | ~2024-02-25 | XR_ITS ---
EXAMINATION: XR CHEST 2 VIEWS CLINICAL INFORMATION: Right upper back and lung pain. COMPARISON: None. TECHNIQUE: Frontal and lateral views of the chest were obtained. FINDINGS: The heart, great vessels, pulmonary vasculature and mediastinum are normal. The lungs show no focal infiltrate, effusion or pneumothorax. There is no acute osseous abnormality. There is multi-level thoracolumbar spondylosis. XR/XR chest 2V IMPRESSION: No active cardiopulmonary disease.
[2024-02-25 18:51] VITALS: BP 119/83; PULSE 72; RESP 18; TEMP 36.6; O2SAT 99; BMI 28.9
--- NOTE | 2024-02-25 18:54 | ED.GENADULT ---
HPI - General Adult General Chief complaint: Back Pain/Injury Stated complaint: body pain, jessica in lungs and kidneys Time Seen by Provider: 02/25/24 20:26 Source: patient and seismic interpreter (all interactions with this patient were facilitated with an [facility] [place] and interpreter) Mode of arrival: ambulatory Limitations: language barrier History of Present Illness HPI narrative: Patient is a 63 year old assigned male at with a history of BPH presenting to the emergency department today with right upper back pain. Patient states that over the last 2 weeks he has had right upper back pain that is worse when he pushes on it. Patient denies any dizziness, lightheadedness, abdominal pain, nausea, vomiting, fever, chills, blurry vision, double vision, loss of vision, chest pain, difficulty breathing, shortness of breath, night sweats, pain with urination, increased urinary frequency, increased urinary urgency, blood in his urine or stool, syncope or a near syncopal episode, recent trauma or falls, bowel incontinence, bladder incontinence, bowel retention, bladder retention, or any other complaints at this time. Onset (ago): week(s) (2) Location: back (right upper) Radiation: non-radiation and back Severity: mild Severity scale (1-10): 3 Quality: aching and dull Pain Consistency: constant Relieving factors: none Exacerbating factors: other (palpation) Associated symptoms: denies other symptoms Treatments prior to arrival: none Related Data Home Medications ?Medication ?Instructions ?Recorded ?Confirmed amlodipine 5 mg tablet 5 mg PO DAILY 11/12/20 blood sugar diagnostic #10 ea 11/12/20 lancets 28 gauge #100 ea 11/12/20 lisinopril 20 mg tablet 20 mg PO DAILY 11/12/20 metformin 1,000 mg tablet 1,000 mg PO 11/12/20 morphine 15 mg tablet,extended mg PO 11/12/20 release Previous Rx's ?Medication ?Instructions ?Recorded pentoxifylline 400 mg 400 mg PO BID 90 days #180 tabs 11/12/20 tablet,extended release vitamin E (dl, acetate) 450 mg 450 mg PO DAILY #90 caps 11/12/20 (1,000 unit) capsule cyclobenzaprine 10 mg tablet 10 mg PO Q8H #14 tabs 11/25/22 ketorolac 10 mg tablet 10 mg PO Q8H #14 tabs 11/25/22 acetaminophen 500 mg tablet 500 mg PO Q6H PRN fever or pain 12/03/22 (Tylenol Extra Strength) #14 tabs cyclobenzaprine 5 mg tablet 5 mg PO Q8H PRN pain (scale score 12/03/22 7-10) 5 days #14 tabs lidocaine 5 % topical patch 1 patch topical DAILY PRN pain #30 12/03/22 (Lidoderm) ea cephalexin 500 mg capsule 500 mg PO QID 10 days #40 caps 08/12/23 doxycycline hyclate 100 mg tablet 100 mg PO BID #20 tabs 08/12/23 Allergies Allergy/AdvReac Type Severity Reaction Status Date / Time No Known Allergies Allergy Verified 02/25/24 18:56 [No Known Allergies*] Review of Systems Constitutional: Constitutional: Reports no additional constitutional complaints, Denies chills, Denies fever(s) and Denies night sweats Eyes: Eyes: Reports no additional eye complaints, Denies blurry vision, Denies change in vision, Denies diplopia, Denies eye discharge, Denies loss of vision and Denies eye pain ENT: Denies dizziness Cardiovascular: Cardiovascular: Reports no additional cardiovascular complaints, Denies chest pain, Denies lightheadedness, Denies Loss of Consciousness and Denies dyspnea Respiratory: Respiratory: Reports no additional respiratory complaints and Denies dyspnea Gastrointestinal: Gastrointestinal: Reports no additional gastrointestinal complaints, Denies abdominal pain, Denies melena, Denies hematochezia, Denies change in bowel habits and Denies change in stool character Genitourinary: Genitourinary: Reports no additional male genitourinary complaints, Denies hematuria, Denies oliguria, Denies difficulty urinating, Denies dysuria, Denies urinary frequency, Denies urinary hesitancy, Denies urinary incontinence and Denies urinary urgency Musculoskeletal: Musculoskeletal: Reports no additional musculoskeletal complaints, Denies numbness and Denies tingling Comments: right upper back pain Neurologic: Denies dizziness, Denies loss of vision, Denies numbness and Denies tingling Psychiatric: Psychiatric: Reports no additional psychiatric complaints Endocrine: Endocrine: Reports no additional endocrine complaints Hematologic/Lymphatic: Hematologic/Lymphatic: Reports no additional hematologic/lymphatic complaints Allergic/Immunologic: Allergic/Immunologic: Reports no additional allergic/immunologic complaints PMFSH Past Medical History Attestation statement: The following information was validated with the patient. Source: old records reviewed and nursing notes reviewed Medical History Diabetes Social History Social History Alcohol intake: current Alcohol intake frequency: a few times a week Advance Directives: No Advance Directives Information Provided: No Do you have a plan to hurt others: No Plan Physical Exam ED Vital Signs: Vital Signs - 24 hr 02/25/24 18:51 02/25/24 19:28 02/25/24 21:24 Temperature 97.8 F 97.3 F 97.3 F Pulse Rate 72 72 72 Respiratory Rate 18 14 14 Blood Pressure 119/83 161/79 H 161/79 H Pulse Oximetry 99 99 99 Oxygen Delivery Method Room Air Room Air Room Air BMI result Body Mass Index 28.9 Const General: cooperative, no acute distress, alert and awake Nutritional Appearance: well nourished Orientation/consciousness: patient oriented x3 Limitations: no limitations HENMT Head: Yes normal to inspection and Yes atraumatic Ears: hearing grossly normal bilaterally and external ears normal General nose exam: Normal external nose present, no nasal discharge noted and no epistaxis Face and sinus: Yes normal facial exam, No abrasion and No laceration Mouth: Normal oral and palatal mucosa present, no drooling and no muffled voice Eyes General: appearance normal, both eyes and all related structures Periorbital: periorbital findings normal Eyelids: Yes eyelids normal Conjunctivae: conjunctivae normal Pupils: Equal, round and reactive pupils present EOM: EOMs intact bilaterally Neck Neck: Yes normal visual inspection, Yes full ROM and Yes no lymphadenopathy Chest Chest palpation & inspection: normal inspection of the chest Resp Effort & Inspection: normal respiratory effort and able to speak in complete sentences GI Inspection: Yes normal to inspection General: Yes no CVA tenderness Back/Spine/Pelvis Other: pain with palpation of the right upper back - not over spine Back: no CVA tenderness Cervical Spine: normal cervical lordosis and cervical ROM normal Thoracic/Lumbar Spine: thoracic and lumbar spine normal to inspection and thoraco-lumbar ROM normal Neuro General: patient oriented x3 and moves all extremities Cranial nerves: Yes Equal, round and reactive pupils present Cognition (Neuro): normal cognition Motor exam (neuro): 5/5 motor strength present throughout Sensory Exam: Normal double simultaneous stimulation for sensation Coordination: [id number] test normal Extrem General: Yes normal to inspection, Yes full ROM and Yes capillary refill normal Psych Appearance: grossly normal Mental Status: mental status grossly normal Affect: normal affect Attitude: cooperative Thought process: Normal thought process present Thought content: Normal thought content present Insight: Good insight present (Psych) Course Course Course Narrative: This is a rapid medical exam performed by Priscila Madden NP: Additional HPI, ROS, PE not included below will be deferred to primary provider. Patient is a 63-year-old male presenting to the ED with complaint of right upper back pain for 2 weeks which he describes as lung pain. Worse with palpation. No CVA tenderness. Denies cough, fever, chills. Plan: labs, CXR, viral swabs Medications Administered Discontinued Medications Generic Name Dose Route Start Last Admin Trade Name Freq PRN Reason Stop Dose Admin Ketorolac Tromethamine 15 mg 02/25/24 20:51 02/25/24 20:59 Ketorolac Tromethamine 15 Mg/Ml Vial IM 02/25/24 20:52 15 mg ONCE ONE Administration Medical Decision Making Medical Decision Making [facility] Narrative: Patient is a 63 year old assigned male at with a history of BPH and chronic low back pain presenting to the emergency department today with right upper back pain. Patient's physical exam showed pain with palpation of the right upper back but was otherwise unremarkable. Patient's blood work was unremarkable. Patient's urine showed no acute process. Patient's chest x-ray showed multi-level thoracolumbar spondylosis. Patient's physical exam is most consistent with a muscle spasm vs. osteoarthritis. I explained my physical exam findings as well as all test results to the patient. I answered all questions asked by the patient. I stressed the importance of the patient taking his medication as prescribed. I stressed the importance of the patient following up with his primary care provider and given his history with chronic pain requiring PO Morphine, a pain specialist. I stressed the importance of the patient returning to the emergency department immediately if his symptoms were to worsen or if he were to develop any dizziness, shortness of breath, difficulty breathing, chest pain, blurry vision, loss of vision, nausea, vomiting, abdominal pain, fever, chills, back pain, or any other complaints. Patient verbalized agreement and understanding with this treatment plan and discharge. Differential Diagnosis Differential Diagnoses: The differential diagnosis associated with the presentation includes Back pain Arthritis Muscle spasm Muscle strain Admission/Observation Consideration of admission/observation: Escalation of care including admission/observation considered Patient would have been admitted to the hospital had his work up had any findings where hospital admission was appropriate and his clinical presentation warranted hospital admission. Lab Data MDM Lab Attestation statement: I reviewed the patient's lab results. My interpretation of these studies and their corresponding values is that they are grossly normal. 02/25/24 19:17 02/25/24 19:17 Labs: Lab Results 02/25/24 02/25/24 Range/Units 19:17 19:32 WBC 6.8 (4.8-10.8) X10*3/uL RBC 4.56 L (4.60-5.80) X10*6/uL Hgb 12.5 L (14.0-18.0) g/dl Hct 37.3 L (42.0-52.0) % MCV 81.8 (80.0-98.0) fL MCH 27.4 (27.0-33.0) pg MCHC 33.5 (31.0-36.0) g/dl RDW 14.0 (11.0-16.0) % Plt Count 303 (160-400) X10*3/uL MPV 9.3 L (9.4-12.4) fL Immature Gran % (Auto) 0.1 (0.0-0.4) % Neut % (Auto) 44.7 L (45-73) % Lymph % (Auto) 44.2 H (20-40) % Loving % (Auto) 8.8 (2-11) % Eos % (Auto) 1.2 (0-4) % Baso % (Auto) 1.0 (0-2) % Lymph # (Auto) 3.0 (1.2-4.9) X10*3/uL Loving # (Auto) 0.6 (0.1-1.2) X10*3/uL Eos # (Auto) 0.1 (0.0-0.4) X10*3/uL Baso # (Auto) 0.1 (0.0-0.2) X10*3/uL Abs Immat Gran (auto) 0.01 (0.00-0.03) X10*3/uL Absolute Neuts (auto) 3.1 (2.0-8.3) x10*3/uL Absolute Nucleated RBC 0.000 (0.0-0.012) X10*3/uL Nucleated RBC % (auto) 0.0 (0.0-0.2) /100WBC Sodium 140 (135-145) mmol/L Potassium 4.3 (3.3-5.1) mmol/L Chloride 101 (96-108) mmol/L Carbon Dioxide 24 (22-29) mmol/L Anion Gap 19 (12-20) BUN 21 H (9-16) mg/dL Creatinine 1.00 (0.5-1.4) mg/dL Estim Creat Clear Calc 81.1 Estimated GFR > 60 Random Glucose 81 (60-115) mg/dL Calcium 10.5 H (8.4-10.2) mg/dL Total Bilirubin 0.3 (0.0-1.0) mg/dL AST 17 (5-37) U/L ALT 23 (0-40) U/L Alkaline Phosphatase 62 (39-117) U/L Total Protein 7.8 (6.5-8.0) g/dL Albumin 4.7 (3.5-5.0) g/dL Urine Color Yellow Urine Appearance Clear Urine pH 5.0 (5.0-9.0) Ur Specific [place] 1.020 (1.005-1.025) Urine Protein Negative (Neg-Trace) mg/dL Urine Glucose (UA) Negative (Negative) mg/dL Urine Ketones Negative (Negative) mg/dL Urine Blood Negative (Negative) Urine Nitrite Negative (Negative) Ur Leukocyte Esterase Negative (Negative) Influenza Type A (PCR) NEGATIVE (Negative) Influenza Type B (PCR) NEGATIVE (Negative) RSV RNA Qual (PCR) NEGATIVE (Negative) SARS-CoV-2 RNA (RT-PCR) NEGATIVE (Negative) Independent Interpretation I performed an independent interpretation of an: EKG and Plain X-Ray Interpretation: My interpretation is in agreement with the radiologist's impression of this imaging study. EXAMINATION: XR CHEST 2 VIEWS CLINICAL INFORMATION: Right upper back and lung pain. COMPARISON: None. TECHNIQUE: Frontal and lateral views of the chest were obtained. FINDINGS: The heart, great vessels, pulmonary vasculature and mediastinum are normal. The lungs show no focal infiltrate, effusion or pneumothorax. There is no acute osseous abnormality. There is multi-level thoracolumbar spondylosis. XR/XR chest 2V IMPRESSION: No active cardiopulmonary disease. Dictated By: Mauro Ramirez MD Signed By: Electronically signed by Mauro Ramirez MD 02/25/241945 Discharge Plan Discharge Clinical Impression: Back pain Patient Disposition: Home, Self-Care Instructions: Back Pain (ED) Additional Instructions: Follow up with your primary care provider and given your history with back issues, a pain specailist. Return to the emergency department immediately if your symptoms worsen or if you develop any dizziness, shortness of breath, difficulty breathing, chest pain, blurry vision, loss of vision, nausea, vomiting, abdominal pain, fever, chills, back pain, or any other complaints. Prescriptions: No Action cyclobenzaprine 5 mg tablet 5 mg PO Q8H PRN (Reason: pain (scale score 7-10)) 5 Days Qty: 14 0RF acetaminophen [Tylenol Extra Strength] 500 mg tablet 500 mg PO Q6H PRN (Reason: fever or pain) Qty: 14 0RF lidocaine [Lidoderm] 5 % adhesive patch,medicated 1 patch topical DAILY MDD remove after 12 hours PRN (Reason: pain) Qty: 30 0RF Rx Instructions: leave on most painful area for up to 12 hrs cyclobenzaprine 10 mg tablet 10 mg PO Q8H Qty: 14 0RF ketorolac 10 mg tablet 10 mg PO Q8H Qty: 14 0RF Rx Instructions: first dose given in the ED by IM and patient tolerated well cephalexin 500 mg capsule 500 mg PO QID 10 Days Qty: 40 0RF doxycycline hyclate 100 mg tablet 100 mg PO BID Qty: 20 0RF morphine 15 mg tablet extended release PO amlodipine 5 mg tablet 5 mg PO DAILY (DME) FreeStyle Lite Strips Strip See Rx Instructions Not Applicable DAILY Qty: 10 Rx Instructions: As directed (DME) lancets 28 gauge misc See Rx Instructions topical DAILY Qty: 100 Rx Instructions: As directed lisinopril 20 mg tablet 20 mg PO DAILY metformin 1,000 mg tablet 1,000 mg PO pentoxifylline 400 mg tablet extended release 400 mg PO BID 90 Days Qty: 180 1RF Rx Instructions: administer with meals vitamin E (dl, acetate) 450 mg (1,000 unit) capsule 450 mg PO DAILY Qty: 90 1RF Referrals: Bobby Amador MD [Primary Care Provider] - Bo Thomas MD [Physician] - (Call to establish and follow up with a pain specialist.) Interventions: ED Discharge Assessment Last Done: 02/25/24 21:24 Discharge Date/Time: 02/25/24 21:26 Print Language: Belarusian
[2024-02-25 19:23] LABS: MANUAL DIFF FLAG NO
[2024-02-25 19:24] LABS: Basophils Absolute Auto 0.1 X10*3/uL (0.0-0.2); Eosinophils Absolute Auto 0.1 X10*3/uL (0.0-0.4); Eosinophils Percent Auto 1.2 % (0-4); Hematocrit 37.3 % (42.0-52.0); Hemoglobin 12.5 g/dl (14.0-18.0); Imm Gran Abs Auto 0.01 X10*3/uL (0.00-0.03); Imm Gran Pct Auto 0.1 % (0.0-0.4); Lymphocytes Percent Auto 44.2 % (20-40); Mean Corpuscular HGB Conc 33.5 g/dl (31.0-36.0); Mean Corpuscular Hemoglobin 27.4 pg (27.0-33.0); Mean Corpuscular Volume 81.8 fL (80.0-98.0); Mean Platelet Volume 9.3 fL (9.4-12.4); Monocytes Absolute Auto 0.6 X10*3/uL (0.1-1.2); Monocytes Percent Auto 8.8 % (2-11); Neutrophils Absolute Auto 3.1 x10*3/uL (2.0-8.3); Neutrophils Percent Auto 44.7 % (45-73); Platelet Count 303 X10*3/uL (160-400); Red Blood Count 4.56 X10*6/uL (4.60-5.80); White Blood Count 6.8 X10*3/uL (4.8-10.8)
[2024-02-25 19:28] VITALS: BP 161/79; PULSE 72; RESP 14; TEMP 36.3; O2SAT 99
[2024-02-25 19:42] LABS: Alanine Aminotransferase 23 U/L (0-40); Albumin Level 4.7 g/dL (3.5-5.0); Alkaline Phosphatase 62 U/L (39-117); Anion Gap 19 (12-20); Aspartate Amino Transferase 17 U/L (5-37); Bilirubin Total 0.3 mg/dL (0.0-1.0); Blood Urea Nitrogen 21 mg/dL (9-16); Calcium 10.5 mg/dL (8.4-10.2); Carbon Dioxide 24 mmol/L (22-29); Chloride 101 mmol/L (96-108); Creatinine Clr Calc Pharmacy 81.1; Estimated Glomerular Filt Rate > 60; Glucose Random 81 mg/dL (60-115); Potassium 4.3 mmol/L (3.3-5.1); Sodium 140 mmol/L (135-145); Total Protein 7.8 g/dL (6.5-8.0)
[2024-02-25 19:45] LABS: Appearance Urine Clear; Color Urine Yellow; Glucose Urine UA Negative (Negative); Leukocyte Esterase Urine Negative (Negative); Nitrite Urine Negative (Negative); Urine Blood Negative (Negative); Urine Ketones Negative (Negative); Urine Protein Negative (Neg-Trace)
[2024-02-25 20:16] LABS: Influenza A PCR NEGATIVE (Negative); Influenza B PCR NEGATIVE (Negative); Resp Syncy Virus RNA Qual PCR NEGATIVE (Negative); SARS COV2 PCR INHOUSE NEGATIVE (Negative)
[2024-02-25] MEDS: Ketorolac Tromethamine 15 MG/ML VIAL IM (20:59)
[2024-02-25 21:24] VITALS: BP 161/79; PULSE 72; RESP 14; TEMP 36.3; O2SAT 99
== END 2024-02-25 21:26 | disposition home or self-care (01) ==
PROVIDERS: Registered Nurse Emergency; Emergency Provider Emergency Medicine Emergency Medical Services; PCP Internal Medicine
DX: M54.6 Pain in thoracic spine (principal); M47.815 Spondylosis without myelopathy or radiculopathy, thoracolumbar region; E11.9 Type 2 diabetes mellitus without complications; Z03.818 Encounter for observation for suspected exposure to other biological agents ruled out
CPT/HCPCS: 0241U; 71046; 80053; 81003; 85025; 96372; 99283; 99284; J1885

== ENCOUNTER 2024-03-03 08:27 | Outpatient (REF) | payer MEDICARE, MEDICAID, SELFPAY ==
[2024-03-06 15:22] LABS: Calcium, Ionized 5.1 mg/dL (4.7-5.5)
== END 2024-03-03 08:28 | disposition home or self-care (01) ==
LOC: HO.HHCL 08:27
PROVIDERS: Visit Provider Internal Medicine
DX: E83.52 Hypercalcemia (principal)
CPT/HCPCS: 36415; 82330

== ENCOUNTER 2024-04-26 14:22 | Emergency (ER) | payer MEDICARE, MEDICAID, SELFPAY | END 2024-04-26 15:29 | disposition left against medical advice (07) | LOC: HO.ED 15:28 | PROVIDERS: Emergency Provider Emergency Medicine; PCP Internal Medicine | DX: Z53.21 Procedure and treatment not carried out due to patient leaving prior to being seen by health care provider (principal) ==